=== PATIENT | male | born 1990 | race Caucasian/White ===

== ENCOUNTER 2017-07-13 19:00 | Emergency (ER) | payer OTHER, SELFPAY ==
[2017-07-13 19:01] VITALS: BP 138/86; PULSE 71; RESP 16; TEMP 36.8; O2SAT 99; BMI 26.6
--- NOTE | 2017-07-13 20:23 | CT_ITS ---
STUDY: CT SOFT TISSUE NECK WITH CONTRAST REASON FOR EXAM: Male, 27 years old. Difficulty swallowing, intermittent tongue swelling RADIATION DOSAGE (If Supplied By Facility): CTDIvol = ( 15.75 ) mGy, DLP = ( 507.29 ) mGycm TECHNIQUE: The patient was scanned in a multi-detector CT scanner. High resolution transaxial imaging was performed following intravenous administration of 100ml ml of Isovue 300 contrast material. Sagittal and coronal images were reconstructed. Individualized dose optimization techniques were used for this CT. COMPARISON: None. FINDINGS: Normal bilateral parotid glands. Normal bilateral wireless communications engineer spaces. Normal bilateral parapharyngeal spaces. Normal bilateral carotid spaces. Normal bilateral sublingual and submandibular glands and spaces. Normal visualized nasopharynx. Normal retropharyngeal space. Normal perivertebral space. Normal visualized bilateral faucial tonsils. The visualized tongue, tongue base and oropharynx are normal. The visualized cervical lymph nodes (levels I-) are within normal size limits, and maintain normal morphology. There is no demonstrated solid or cystic mass lesion. There is no abnormal contrast enhancement. Normal epiglottis, bilateral vallecula and hypopharynx. The pre-epiglottic and paraglottic adipose spaces are normal. Normal visualized bilateral piriform sinuses, aryepiglottic folds, vocal cords, and arytenoid-cricoid articulations. Normal subglottic trachea. Normal bilateral lobes of the thyroid gland. Mild emphysematous changes of the right lung apex. There is a polypoid filling defect of the right maxillary sinus consistent with a mucoid retention cyst. Normal visualized cervical spine. CT/Soft Tissue Neck WITH Contrast IMPRESSION: Polypoid defect of the right maxillary sinus consistent with a mucoid retention cyst. Mild emphysematous changes of the right lung apex. The study is otherwise unremarkable. Electronically Signed: Edmundo Valderrama MD at 21:19 EDT , Service support ,
[2017-07-13 20:37] LABS: Absolute Lymphocyte Count 2.94 X10^3/ul (0.83-4.51); Absolute Neutrophil Count 6.1 X10^3/uL (2.0-7.7); Basophil# 0.02 X10^3/uL; Basophil% 0.2 % (0-1); Eosinophil# 0.14 X10^3/uL; Eosinophils% 1.4 % (0-5); Hematocrit 38.9 % (40-54); Lymphocyte # 2.94 X10^3/ul (4.0); Lymphocyte % 30.2 % (19-41); Mean Corp Hgb Conc 33.4 g/gl (32-36); Mean Corpuscular Volume 86.8 fL (80-94); Mean Platelet Vol. 9.4 fl (6.2-12.0); Monocyte# 0.52 X10^3/uL; Monocyte% 5.3 % (0-10); Neutrophil # 6.12 X10^3/uL (2.7-7.7); Neutrophil % 62.8 % (47-70); POSITIVE COUNT NO; POSITIVE DIFFERENTIAL NO; POSITIVE MORPHOLOGY NO; Platelet Count 275 K/mm3 (150-450); RBC Distribution Width CV 12.8 % (11.6-14.6); RBC Distribution Width SD 40.5 fl (35.1-43.9); Red Blood Count 4.48 M/mm3 (4.6-6.2); White Blood Count 9.8 K/mm3 (4.4-11.0)
[2017-07-13 20:44] LABS: Anion Gap 5 (5-15); BUN 14 mg/dL (7-18); BUN/Creat Ratio 14.7 RATIO (10-20); Calcium,Total 8.6 mg/dL (8.5-10.1); Chloride 107 mmol/L (98-107); Creatinine, Serum 0.95 mg/dL (0.70-1.30); EST Glomerular Filtration Rate 99 mL/min (>60); Est Glom Filt Rate - Afr Amer 120 mL/min (>60); Glucose 67 mg/dL (74-106); Potassium 4.1 mmol/L (3.5-5.1); Sodium Level 141 mmol/L (136-145)
[2017-07-13 21:03] VITALS: BP 118/76; PULSE 62; RESP 15; O2SAT 98
--- NOTE | 2017-07-13 22:48 | ED.DCSUM_ITS ---
- ER Visit Summary Date of Service: 07/13/17 Chief Complaint: Allergic reaction History of Present Illness: The patient is a 27 M states for at least a week he has felt like his tongue is swollen. He points near his larynx is the area that is involved. He denies any drooling. He has been able to eat and drink. He was recently on training exercises in [place] and out of the field. He tried a Benadryl on Sunday with no relief. He tried some Motrin with no relief. Physical Examination: Afebrile vital signs are stable Gen: Well-nourished well-developed Head: Normocephalic atraumatic Eyes: Perrl EOMI ENT: TMs clear no rhinorrhea moist mucous membranes laying back in the bed. There is no drooling. No stridor. Tongue appears normal. Uvula is midline and appears normal Neck: Supple no lymphadenopathy no JVD nontender CVS: Regular rate rhythm no murmurs normal S1-S2 Respiratory: No distress clear to auscultation bilaterally chest nontender Abdomen: Soft nontender nondistended normal bowel sounds no masses Back: Nontender Extremity: Nontender no edema Skin: Normal color no rash Neuro: alert orientated ?3 CN II-XII intact normal strength sensation reflexes gait cerebellar Psych: Normal affect normal mood Test Results: See BMP negative CT of the neck with IV contrast was negative Emergency Department Course and Treatment: We will try a trial of prednisone. If not improving he will follow-up with ENT. Impression: 1. Pharyngeal paresthesias This note was generated with [employer] dictation software. It may contain incorrect words, spelling, and punctuation that were not noted in review of the chart prior to signing ED Disposition - Plan for ED Patient: Disposition: Home or Assisted Living Chief Complaint: Allergic Reaction Instructions: ED Angioedema Prescriptions: Prednisone [Deltasone] 60 mg PO DAILY #12 tab Referrals: Rosendo Tam MD [STAFF PHYSICIAN] - (Please call to arrange follow-up if symptoms persist into next week.) Additional Instructions: Return if worsening or any concerns.
[2017-07-13] MEDS: predniSONE 20 MG Tablet 60 MG PO (23:01)
[2017-07-13 23:06] VITALS: BP 108/74; PULSE 68; RESP 15; O2SAT 100
== END 2017-07-13 23:07 | disposition home or self-care (01) ==
PROVIDERS: Emergency Provider Emergency Medicine
DX: R20.2 Paresthesia of skin (principal); Z72.0 Tobacco use
CPT/HCPCS: 70491; 80048; 85025; 99284; Q9967; A4216